=== PATIENT | male | born 2000 | race Caucasian/White ===

== ENCOUNTER 2022-07-09 01:19 | Day surgery (SDC) | payer OTHER, SELFPAY ==
[2022-07-03 14:11] VITALS: BMI 35.4
--- NOTE | 2022-07-03 14:31 | PC.NURSE ---
Report to the Outpatient Waiting Room, entrance under the green pavilion located off [facility], at time _0630 on date _07/09/22 . Planned Procedure Time: 08 . Time changes happen often and if your time is changed the preop area will call you the afternoon before. - You and your visitor will be asked to self-screen and do not enter if you have any COVID symptoms. - We encourage only one visitor and NO visitors under age 16 are allowed at this time. Your visitor will receive communication by the phone number that is given day of service. - The patient visitor is requested to social distance or may leave the building when not with patient due to restrictions. - A mask is required within the hospital. Patients may have clear liquids (water, carbonated beverages, clear teas, apple juice) until 3 hours prior to surgery with a maximum of 20 ounces. - No food from midnight until time of surgery - Infants may have breast milk until 4 hours before surgery, infant formula 6 hours prior to surgery. - Children will be allowed to drink immediately following surgery. If applicable, please bring a bottle or sippy cup to assist with drinking. Juice, water, soda, and popsicles are readily available. For infants on formula, please bring formula the day of surgery. Pacifiers are allowed. Take the following medications with a SIP of water the morning of surgery: __N/A Medications to discontinue per physician N/A Date to take last dose____N/A Please no make-up, nail bengali, hairspray, perfume, deodorant, or body powder the day of surgery. No jewelry (including any body piercings) or valuables the day of surgery, leave them at home. Please take a shower or bath the night before, or the morning of, surgery with an antibacterial soap. Wear comfortable, loose fitting clothing. Children are encouraged to wear pajamas. - Jewelry must be removed prior to entering the operating room. Rings and piercings that are not removed may be cut off. - The hospital will not accept responsibility for valuables. - Please leave all valuables, including medications, at home the day of surgery. If you are going home after surgery, a licensed oil transport driver must drive you home. - NO public transportation without another adult. - We recommend that an adult stay with you for 24 hours following discharge. - We also recommend that you do not drive, make important decision, drink alcoholic beverages, or take any drugs that were not prescribed by your health care provider for at least 24 hours after your discharge time. For Pediatric surgeries, we recommend two adults accompany the child home. Follow any additional instructions given to you from your surgeon. If you or anyone in your household have experienced Covid symptoms in the past week, please notify your surgeon or the nurse liaison at the phone number below for possible testing. Telephone instructions given to __AUSTIN and asked if any additional questions and then verbalized understanding. Patient advised to call surgeon office or pre surgery nurse liaison [phone] if any additional questions.
[2022-07-09] VITALS (8 sets, daily range): BP systolic 112–143; BP diastolic 61–84; PULSE 90–104; RESP 14–16; TEMP 36.6–36.7; O2SAT 99–100
[2022-07-09] MEDS: ACETAMINOPHEN 500 MG TABLET 1000 MG PO (07:15)
[2022-07-09] MEDS: OXYMETAZOLINE HCL 0.05% NAS 15 ML BTL (*BKC) 1 SPRAY NASAL (07:29)
[2022-07-09] MEDS: LACTATED RINGERS 1,000 ML 30 ML IV CONT (07:29)
--- NOTE | 2022-07-09 07:43 | P.PNAN_ITS ---
Anes - Initial Pre Proc Eval Procedure: Operation Date: 07/09/22 08:00 Proposed Procedures p Image Guided Bilateral Frontal Sinusotomy, Bilateral Ethmoidectomy, Bilateral Sphenoidotomy, Bilateral Maxillary Antrostomy, Bilateral Turbinate Reduction, - Wes Richmond MD s Septoplasty - Wes Richmond MD Date/Time: 07/09/22 07:43 Surgeon: Wes Richmond MD Pre Op Diagnosis: nasal polyps Patient Data Age: 21 Gender: M Height: 1.78 m Weight: 114.8 kg Last Vital Signs Temp 36.6 C 07/09/22 06:43 Pulse 90 07/09/22 06:43 Resp 16 07/09/22 06:43 BP 128/84 07/09/22 06:43 Pulse Ox 100 07/09/22 06:43 O2 Del Method Room Air 07/09/22 06:43 Allergies Allergy/AdvReac Type Severity Reaction Status Date / Time No Known Allergies Allergy Verified 07/09/22 07:00 Home Medications Medication Instructions Recorded Confirmed Type No Home Medications 07/03/22 07/09/22 History Patient hx anesthesia problems: none Family hx anesthesia problems: none Results Review: All pre-operative results and documents have been reviewed as part of the pre- operative evaluation. [facility] Past Medical History Medical History Asthma Social History Social History Smoking status: Never smoker Alcohol intake: never Substance use: never Substance use type: does not use Living arrangements: with family Spiritual care concerns: No Anes - Eval Final PreProcedure Day of Procedure 07/09/22 07:43 Patient weight: obese Heart: regular rate and rhythm Lungs: clear to auscultation Airway: Mallampati scale class II Neurological: alert and oriented Last oral intake: >/= 8 hours ASA classification: II Emergent: no Anesthetic plan: proceed Anesthesia type and monitoring: general ETT and standard monitoring Results Review: All pre-operative results and documents have been reviewed as part of the pre- operative evaluation. Informed Consent: The patient's anesthetic plan and its attendant risks and benefits were discussed with the patient/family/POA. Questions were solicited and answers provided to the satisfaction of the patient/family/POA.
--- NOTE | 2022-07-09 07:45 | PM.IMHP ---
H&P: HPI History of Present Illness Date/Time: 07/09/22 07:45 Chief Complaint: chronic sinusitis Narrative: Jostin has bilateral nasal polyposis, deviated septum and chronic pansinusitis non responsive to medical management, here for FESS. Review of Systems Review of Systems: All systems reviewed & are unremarkable except as noted in HPI and below PMFSH Past Medical History Medical History Asthma Social History Social History Smoking status: Never smoker Alcohol intake: never Substance use: never Substance use type: does not use Living arrangements: with family Spiritual care concerns: No Meds Home Medications and Allergies Home Medications Medication Instructions Recorded Confirmed Type No Home Medications 07/03/22 07/09/22 History Allergies Allergy/AdvReac Type Severity Reaction Status Date / Time No Known Allergies Allergy Verified 07/09/22 07:00 Vital Signs Vital Signs - 24 hr 07/09/22 06:43 Temperature 36.6 C Pulse Rate 90 Respiratory Rate 16 Blood Pressure 128/84 Pulse Oximetry 100 Oxygen Delivery Room Air Exam Narrative: Bilateral nasal polyposis, deviatd septum. rest of exam wnl Assessment and Plan Assessment and plan (1) Nasal polyposis: Code(s): J33.9 - Nasal polyp, unspecified Status: Acute Plan Jostin is here for bilateral endoscopic sinus surgeyr, septoplasty, turbinoplasty under image guidance. r/b/a reviewed, patient understands, agrees to proceed with surgery. Refer to outpt H&P for full details.
--- NOTE | 2022-07-09 07:47 | WPDHPUPDATE1 ---
History and Physical Update Update Date/Time: 07/09/22 07:47 History and Physical has been reviewed, including an updated exam of the patient. There are NO changes in the patient's condition. Risks, benefits, and alternatives have been discussed and questions answered. Patient agrees to proceed with procedure.
[2022-07-09] MEDS: ceFAZolin 2 GM/D5W 50 ML 2 GM/50 ML BAG IVPB (07:59)
[2022-07-09] MEDS: MUPIROCIN 2% OINT 22 GM TUBE 1 APPLIC EACH NARE (09:38)
[2022-07-09] MEDS: LIDO 2%/EPINEPHRINE 1:100,000 50 ML VIAL 10 ML INFILTRATE (09:43)
--- NOTE | 2022-07-09 09:55 | W.PM.PROC2 ---
Procedure Note - Detailed Date of Procedure 07/09/22 Pre-op Diagnosis nasal polyps Post-op Diagnosis Same Procedure Performed Bilateral frontal sinusotomy, total ethmoidectomy, sphenoidotomy, maxillary antrostomy, septoplasty, turbinoplasty, image guided surgery. Surgeon Wes Richmond MD Anesthesia General Indications Nasal polyps, chronic sinusitis Findings Left septal deviation. Bilateral nasal polyps. Chronic and acute infection in maxillary sinuses bilaterally. Thick inspissated mucous removed from right frontal sinus. Description of Procedure On the date of procedure the patient was met in the preoperative area and risk and benefits of the procedure reviewed with the patient as documented in the H&P and they elected to proceed with surgery. Patient was brought back to the operating room by the anesthesia team and underwent general endotracheal anesthesia. Once an adequate plane of anesthesia was obtained a timeout was performed to assure the patient identification the patient here to be performed were correct. They were.The patient was then prepped and draped in the normal fashion for endoscopic sinus surgery. The diffusion image guidance system was calibrated and used for the entire case. Afrin-soaked pledgets were placed in the nasal cavities bilaterally. The entire case was performed under endoscopic visualization. Nasal endoscopy was performed at the beginning of the case. 1% lidocaine with 1:100,000 epinephrine was then injected into the root of the middle turbinate and lateral nasal wall. Attention was first directed towards the right side. The middle turbinate was medialized and the osteomeatal complex was identified with a julita probe. Using a 90 degree backbiter, the uncinate process was reflected anteriorly and removed using a combination of sharp and powered dissection. The maxillary antrostomy was then created and widened by identifying the natural ostia and opening the sinus with straight cassi-cut forceps, backbiter, and microdebrider. Polyp tissue encountered was removed with microdebrider. Continuing with the microdebrider, the anterior ethmoid bulla was opened. Careful dissection was carried out posteriorly, through the basal lamella and posterior ethmoid cells until the sphenoid rostrum was identified. A Nataliya suction bluntly identified the sphenoid os and the opening was widened with microdebrider and mushroom punch to 5mm. Using an image guided curved suction as well as J-curette, the posterior most ethmoid cell was identified and the ethmoids were bluntly fractured and dissected from posterior to anterior along the base of the skull. The remaining bone fragments were removed with appropriate curved instruments and microdebrider.? Lastly, image guided frontal suction and sinus seeker were used to identify the frontal sinus and enter it.? The frontal sinus was irrigated with saline which removed thick inspissated mucous.? The left side was narrowed due to septal deviation.? Thus, septoplasty was required.? A left modified kulwinder incision was made in the left mid-septum and a mucoperichondrial flap was elevated in the usual fashion. The flap was elevated under endoscopic visualization and the remainder of the case was performed with endoscopic assistance. Using a D-knife, an incision was made through the cartilaginous septum with care to preserve the appropriate caudal and dorsal ?L-strut? of cartilage. The cartilage was then disarticulated from the bony-cartilaginous junction and the deviated cartilage was removed. Further deviated bone and cartilage was removed from the posterior bony septum with care to avoid injury to the mucoperichondrial flap using a combination of dissection and John-Danielle forceps. Once this was completed, the mucosal flap was laid back down and did not require suturing. Next, the left maxillary antrostomy, ethmoidectomy and sphenoidotomy were carried out in identical fashion with findings of gross polyp disease
[2022-07-09] MEDS: oxyCODONE HCL (*CRX) 5 MG TAB IR PO (11:27)
== END 2022-07-09 12:04 | disposition home or self-care (01) ==
PROVIDERS: Visit Provider Otolaryngology
PROC: (CPT 31256; principal; 2022-07-09 08:00)
PROC: (CPT 30520; 2022-07-09 08:00)
DX: J33.9 Nasal polyp, unspecified (principal); J32.9 Chronic sinusitis, unspecified; E66.9 Obesity, unspecified; Z68.36 Body mass index [BMI] 36.0-36.9, adult
CPT/HCPCS: 31256; 31253; 31287; 30140; 30520; 61782; 88305; 88311; A9270; J0330; J0690; J1100; J2250; J2405; J2704; J3010; J7040; J7120